=== PATIENT | female | born 1950 | race Caucasian/White ===

== ENCOUNTER → 2023-09-04 13:31 | Outpatient (REF) | payer MEDICARE, SELFPAY | LOC: WDC 13:31 | PROVIDERS: ATTENDING PHYSICIAN Nurse Practitioner Adult Health | DX: Z12.31 Encounter for screening mammogram for malignant neoplasm of breast (principal) | CPT/HCPCS: 77063; 77067 ==

== ENCOUNTER → 2024-08-28 11:22 | Outpatient (REF) | payer MEDICARE, SELFPAY | LOC: RAD 11:22 | PROVIDERS: ATTENDING PHYSICIAN Internal Medicine | DX: R79.82 Elevated C-reactive protein (CRP) (principal) | CPT/HCPCS: 75571 ==

== ENCOUNTER → 2024-09-17 10:05 | Outpatient (REF) | payer MEDICARE, SELFPAY | LOC: RAD 10:05 | PROVIDERS: ATTENDING PHYSICIAN Internal Medicine | DX: M81.0 Age-related osteoporosis without current pathological fracture (principal); Z12.31 Encounter for screening mammogram for malignant neoplasm of breast | CPT/HCPCS: 77063; 77067; 77080 ==

== ENCOUNTER → 2024-10-18 07:39 | Outpatient (REF) | payer MEDICARE, SELFPAY | LOC: HWRAD 07:39 | PROVIDERS: ATTENDING PHYSICIAN Internal Medicine | DX: R91.1 Solitary pulmonary nodule (principal) | CPT/HCPCS: 71250 ==

== ENCOUNTER → 2024-10-23 07:14 | Outpatient (REF) | payer MEDICARE, SELFPAY | LOC: HWRCS 07:14 | PROVIDERS: ATTENDING PHYSICIAN Internal Medicine | DX: I35.9 Nonrheumatic aortic valve disorder, unspecified (principal) | CPT/HCPCS: 93306 ==